=== PATIENT | female | born 2005 | race Two or more races ===

== ENCOUNTER 2024-03-16 10:57 | Emergency (ER) | payer MEDICAID, OTHER ==
[~2024-03-16] VITALS: Ht 172.7 cm; Wt 80.4 kg
--- NOTE | 2024-03-16 11:17 | ED.PDOC ---
WILDERNESS GUIDE HPI Comments 18y F who presents to the ED for chief complaint of vaginal bleeding. Pt states she has chato having vaginal bleeding since 20 minutes prior. Pt states she is currently , , and states she has been approx 4 months and states she been having dark get blood while bleeding but denies any associated blood clots. Pt states she has been having abdominal pain since last night PM. Pt rates the pain 8/10, cramping in nature, constant, with no associated exacerbating or relieving factors. Pt otherwise denies dysuria, fever, cough, chills, nausea, vomiting, chest pain or shortness of breath. Pt otherwise denies any other symptoms at this time. Chief Complaint: Time Seen by MD: 11:14 Reviewed Notes: Allergies Home Meds Active Scripts Nitrofurantoin Monohydrate Mac (Macrobid) 100 Mg Cap, 100 MG PO BID for 5 Days, #10 CAP Prov:POLLY BRAY MD 03/16/24 Information Source: Patient Mode of Arrival: Ambulatory Brought in by: self Timing: Minutes Prehospital treatment: None Severity: Moderate Vaginal Discharge: None Vaginal Lesions: None Bleeding Quality: Dark Vaginal Mass: None Onset Of Mass/Bleeding: Spontaneous Sexual Activity: Last Consensual [place]: Hours Control: None History of: Current Blood Type: Unknown Associated Signs and Symptoms: Vaginal Bleeding, Abdominal Pain Past Medical History PAST MEDICAL HISTORY: HTN Surgical History (Other): IUD removed October 2023 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 INSPECTOR History: Denies all 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 Family History Family History: Family hx of heart mai Social History Smoker: Quit Less Than 1 Year Alcohol: Denies ETOH Use Drugs: Denies Drug Use Lives In: Home Constitutional: denies: chills, diaphoresis, fatigue, fever, malaise, sweats, weakness, others EENTM: denies: blurred vision, double vision, ear bleeding, ear discharge, ear drainage, ear pain, ear ringing, eye pain, eye redness, hearing loss, mouth pain, mouth swelling, nasal discharge, nose bleeding, nose congestion, nose pain, photophobia, tearing, throat pain, throat swelling, voice changes, others Respiratory: denies: cough, hemoptysis, orthopnea, SOB at rest, shortness of breath, SOB with excertion, stridor, wheezing, others Cardiovascular: denies: chest pain, dizzy spells, diaphoresis, Dyspnea on exertion, edema, irregular heart beat, left arm pain, lightheadedness, palpitations, PND, syncope, others Gastrointestinal: reports: abdominal pain; denies: abdomen distended, blood streaked bowels, constipated, diarrhea, dysphagia, difficulty swallowing, hematemesis, melena, nausea, poor appetite, poor fluid intake, rectal bleeding, rectal pain, vomiting, others Genitourinary: reports: abnormal vagina bleeding; denies: burning, dyspareunia, dysuria, flank pain, frequency, hematuria, incontinence, pain, , vagina discharge, urgency, others Neurological: denies: dizziness, fainting, headache, left sided numbness, left sided weakness, numbness, paresthesia, pre-existing deficit, right sided numbness, right sided weakness, seizure, speech problems, tingling, tremors, weakness, others Musculoskeletal: denies: back pain, gout, joint pain, joint swelling, muscle pain, muscle stiffness, neck pain, others Integumetry: denies: bruises, change in color, change in hair/nails, dryness, laceration, lesions, lumps, rash, wounds, others Allergic/Immunocompromised: denies: Difficulty Healing, Frequent Infections, Hives, Itching, others Hematologic/Lymphatic: denies: anemia, blood clots, easy bleeding, easy bruising, swollen glands, others Endocrine: denies: excessive hunger, excessive sweating, excessive thirst, excessive urination, flushing, intolerance to cold, intolerance to heat, unexplained weight gain, unexplained weight loss, others Psychiatric: denies: anxiety, bipolar disorder, depression, hopeless, panic disorder, schizophrenia, sleepless, suicidal, others All Other Systems: Reviewed and Negative Physical Exam General Appearance: No Apparent Distress HEENT: Normal ENT Inspection, Pharynx Normal, TMs Normal Neck: Full Range of Motion, Non-Tender, Normal, Normal Inspection Respiratory: Chest Non-Tender, Lungs Clear, No Accessory Muscle Use, No Respiratory Distress, Normal Breath Sounds Cardiovascular: No Edema, No JVD, No Murmur, No Gallop, Normal Peripheral Pulses, Regular Rate/Rhythm Breast Exam: Deferred Gastrointestinal: No Organomegaly, Non Tender, No Pulsatile Mass, Normal Bowel Sounds, Soft Genitalia: Deferred Pelvic: Deferred Rectal: Deferred Extremities: No calf tenderness, Normal capillary refill, Normal inspection, Normal range of motion, Non-tender, No pedal edema Musculoskeletal : Apperance: Normal Neurologic: 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 Was a procedure done?: No Differential Diagnosis (PHOTOGRAPH INSPECTOR) Vaginal Bleeding: - Complete, - Incomplete, - Inevitable, - Missed, - Threatened, Blood Loss Anemia, Ectopic , PID, Placenta Previa, UTI, Vaginitis, Other (subchorionic hemorrhage) X-Ray, Labs, Meds, VS Vital Signs Date Time Temp Pulse Resp B/P (MAP) Pulse Ox O2 Delivery O2 Flow Rate FiO2 03/16/24 13:18 98 16 142/94 (110) 98 03/16/24 11:55 70 16 98 Room Air* 0 21 03/16/24 11:55 70 16 98/65 (76) 98 03/16/24 11:08 98.1 85 18 122/62 (82) 99 Lab Test 03/16/24 14:20 03/16/24 11:18 Range/Units Urine Color Red H Yellow Urine Clarity Ex.turbid Clear Urine pH 6.0 5.0-9.0 Urine Specific [place] 1.032 1.001-1.035 Urine Protein 2+ H Negative Urine Ketones Negative Negative Urine Blood 3+ H Negative /uL Urine Nitrite Negative Negative Urine Bilirubin Negative Negative Urine Urobilinogen Normal Negative mg/dL Urine Leukocyte Esterase 1+ Negative /uL Urine RBC 95550 0 - 4 /hpf Urine WBC 50 0 - 5 /hpf Urine Squamous Epithelial Cells Mod <5 /hpf Urine Bacteria None seen None Seen /hpf Urine Glucose Normal Normal mg/dL White Blood Count 12.0 H 4.4-10.8 10^3/uL Red Blood Count 5.43 H 4.0-5.20 10^6/uL Hemoglobin 13.9 12.2-16.2 g/dL Hematocrit 42.0 36.0-46.0 % Mean Corpuscular Volume 77.2 L 80.0-100.0 fL Mean Corpuscular Hemoglobin 25.6 L 28.0-32.0 pg Mean Corpuscular Hemoglobin Concent 33.1 32.0-36.0 g/dL Red Cell Distribution Width 14.4 H 11.8-14.3 % Platelet Count 341 140-450 10^3/uL Mean Platelet Volume 7.7 6.9-10.8 fL Neutrophils (%) (Auto) 73.4 37.0-80.0 % Lymphocytes (%) (Auto) 19.7 10.0-50.0 % Monocytes (%) (Auto) 6.5 0.0-12.0 % Eosinophils (%) (Auto) 0.2 0.0-7.0 % Basophils (%) (Auto) 0.2 0.0-2.0 % Neutrophils # (Auto) 8.8 H 1.6-8.6 10 ^3/uL Lymphocytes # (Auto) 2.4 0.4-5.4 10 ^3/uL Monocytes # (Auto) 0.8 0-1.3 10 ^3/uL Eosinophils # (Auto) 0 0-0.8 10 ^3/uL Basophils # (Auto) 0 0-0.2 10 ^3/uL Nucleated Red Blood Cells 0.1 % Beta HCG, Quantitative 572119.6 H 1.5-4.2 mIU/mL Current Medications Medications (Trade) Dose Ordered Sig/Justin Route Start Time Stop Time Status Last Admin Acetaminophen (Tylenol Tablet) 650 mg ONCE ONCE PO 03/16/24 11:15 03/16/24 11:16 DC 03/16/24 11:59 OB ULTRASOUND <14 WEEKS: IMPRESSION: IUP single live fetus 10 weeks and 1 day AUA corresponding to an VIRAJ of 10/11/2024. Small subchorionic hematoma is present measuring 2.7 cm. Close clinical and sonographic follow-up advised. No acute abnormality detected. The patient's quantitative hCG is [id number] The CBC shows slightly elevated white blood cell count of 12.0 At this time, the patient was given acetaminophen 650 mg by mouth for the pain The patient will return to the emergency department's the condition worsens. The urine test is positive for UTI The patient is being discharged on Macrobid 100 mg p.o. b.i.d. The patient will follow up with her OBGYN. Images Reviewed?: Images reviewed and evaluated by me Time of 1ST Reevaluation: 11:45 Reevaluation 1ST: Unchanged Patient Education/Counseling: Diagnosis, Treatment, Prognosis, Need For Follow Up Family Education/Counseling: No Family Present Departure 1 Departure Time of Disposition: 14:53 Impression: Primary Impression: UTI (urinary tract infection) Qualified Codes: N30.01 - Acute cystitis with hematuria Additional Impressions: Subchorionic bleed Qualified Codes: O20.8 - Other hemorrhage in early Threatened Disposition: HOME / SELF CARE / HOMELESS Condition: Fair e-Prescriptions Nitrofurantoin Monohydrate Mac (Macrobid) 100 Mg Cap 100 MG PO BID for 5 Days, #10 CAP Prov: POLLY BRAY MD 03/16/24 Discharged With: Self Critical Care Note Critical Care Time?: No Stability Stability form required: No Heart Score Heart Score: Heart Score Response (Comments) Value History N/A 0 EKG N/A 0 Age N/A 0 Risk Factors N/A 0 Troponin N/A 0 Total 0 I personally scribed for POLLY BRAY MD ([email or web address]) on 03/16/24 at 11:17. Electronically submitted by Glendy Ryan ([email or web address]). I personally scribed for POLLY BRAY MD ([email or web address]) on 03/16/24 at 12:29. Electronically submitted by Glendy Ryan ([email or web address]). POLLY BRAY MD Mar 16, 2024 11:17
[2024-03-16 11:37] LABS: Basophils # (auto) 0 10 ^3/uL (0-0.2); Eosinophils # (auto) 0 10 ^3/uL (0-0.8); Hemoglobin 13.9 g/dL (12.2-16.2); Neutrophils % (auto) 73.4 % (37.0-80.0)
[2024-03-16 11:39] LABS: Basophils % (auto) 0.2 % (0.0-2.0); Eosinophils % (auto) 0.2 % (0.0-7.0); Lymphocytes # (auto) 2.4 10 ^3/uL (0.4-5.4); Lymphocytes % (auto) 19.7 % (10.0-50.0); Mean Corpuscular Hemoglobin 25.6 pg (28.0-32.0); Mean Corpuscular Hgb Conc. 33.1 g/dL (32.0-36.0); Mean Corpuscular Volume 77.2 fL (80.0-100.0); Monocytes # (auto) 0.8 10 ^3/uL (0-1.3); Monocytes % (auto) 6.5 % (0.0-12.0); Neutrophils # (auto) 8.8 10 ^3/uL (1.6-8.6); Nucleated Red Blood Cells % 0.1 %; Platelet Count (auto) 341 10^3/uL (140-450); Red Blood Cells 5.43 10^6/uL (4.0-5.20); Red Cell Distribution Width 14.4 % (11.8-14.3)
[2024-03-16 11:55] VITALS: PULSE 70; RESP 16; O2SAT 98
[2024-03-16] MEDS: ACETAMINOPHEN 325 MG TAB PO ONE (11:59)
--- NOTE | 2024-03-16 12:15 | DVH ---
OB ULTRASOUND <14 WEEKS: HISTORY: pain TECHNIQUE: Multiple real-time grayscale sonographic images of the pelvis with duplex Doppler color f low, spectral and M-mode analysis. TRANSDUCERS: Transabdominal COMPARISON: None FINDINGS: The uterus measures 12.9 x 6.9 x 6.1 cm The cervix is not visualized Right ovary measures 3.5 x 1.7 x 2.6 cm with normal Doppler color flow. Left ovary is not visualized IUP single fetus at 10 weeks and 1 day average ultrasound age based on mean crown-rump length of 2.9 8 cm and gestational sac size of 4.68 cm heart rate detected at 158 beats per minute. Yolk sac is present. Amniotic fluid is subjectively within normal limits Shanice-gestational space: Small subchorionic hematoma is present measuring 2.7 cm. IMPRESSION: IUP single live fetus 10 weeks and 1 day AUA corresponding to an VIRAJ of 10/11/2024. Small subchorionic hematoma is present measuring 2.7 cm. Close clinical and sonographic follow-up adv ised. No acute abnormality detected.
[2024-03-16 14:31] LABS: Urine Bacteria None Seen /hpf (None Seen)
[2024-03-16 14:51] LABS: Urine Blood 3+ /uL (Negative); Urine Clarity Ex.Turbid (Clear); Urine Color Red (Yellow); Urine Protein, UAD 2+ (Negative); Urine Specific Gravity 1.032 (1.001-1.035); Urine Urobilinogen Normal (Negative); Urine WBC 50 /hpf (0 - 5)
[2024-03-16] MEDS ORDERED: NITR-87 PO (14:53)
[2024-03-16 15:03] VITALS: BP 114/64; PULSE 69; RESP 16; O2SAT 98
== END 2024-03-16 15:06 | disposition home or self-care (01) ==
LOC: ER 10:57
DX: O23.41 Unspecified infection of urinary tract in pregnancy, first trimester (principal); R10.2 Pelvic and perineal pain; N39.0 Urinary tract infection, site not specified; O10.911 Unspecified pre-existing hypertension complicating pregnancy, first trimester; Z3A.10 10 weeks gestation of pregnancy
CPT/HCPCS: 36415; 76801; 81001; 84702; 85025

== ENCOUNTER 2024-03-16 17:40 | Emergency (ER) | payer MEDICAID ==
[~2024-03-16] VITALS: Ht 172.7 cm; Wt 81.0 kg
[~2024-03-16 17:40] MED LIST: NITR-87 PO
--- NOTE | 2024-03-16 18:12 | ED.PDOC ---
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 Pt states she has chato having vaginal bleeding since 20 minutes prior. Pt states she is currently , , and states she has been approx 4 months and states she been having dark get blood while bleeding but denies any associated blood clots. Pt states she has been having abdominal pain since last night PM. Pt rates the pain 8/10, cramping in nature, constant, with no associated exacerbating or relieving factors. Pt otherwise denies dysuria, fever, cough, chills, nausea, vomiting, chest pain or shortness of breath. Pt was seen for same complaint earlier this afternoon but discharged. Pt came to the ED for further evaluation. Chief Complaint: Vaginal Bleed Time Seen by MD: 18:09 Reviewed Notes: Medications, Allergies Home Meds Active Scripts Nitrofurantoin Monohydrate Mac (Macrobid) 100 Mg Cap, 100 MG PO BID for 5 Days, #10 CAP Prov:POLLY BRAY MD 03/16/24 Information Source: Patient Mode of Arrival: Ambulatory Brought in by: self Timing: Hours Prehospital treatment: None Severity: Moderate Vaginal Discharge: None Vaginal Lesions: None Bleeding Quality: Dark Vaginal Mass: None Onset Of Mass/Bleeding: Unknown Sexual Activity: Last Consensual [place]: Unknown Control: None History of: Current Blood Type: Unknown Symptoms of Possible : None Associated Signs and Symptoms: Vaginal Bleeding Past Medical History PAST MEDICAL HISTORY: HTN Surgical History: Denies all surgeries TAKE AWAY MAN 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: Denies all TAKE AWAY MAN Hx Family History Family History: Family hx of heart mai Social History Smoker: Quit Less Than 1 Year Alcohol: Denies ETOH Use Drugs: Denies Drug Use Lives In: Home Constitutional: denies: chills, diaphoresis, fatigue, fever, malaise, sweats, weakness, others EENTM: denies: blurred vision, double vision, ear bleeding, ear discharge, ear drainage, ear pain, ear ringing, eye pain, eye redness, hearing loss, mouth pain, mouth swelling, nasal discharge, nose bleeding, nose congestion, nose pain, photophobia, tearing, throat pain, throat swelling, voice changes, others Respiratory: denies: cough, hemoptysis, orthopnea, SOB at rest, shortness of breath, SOB with excertion, stridor, wheezing, others Cardiovascular: denies: chest pain, dizzy spells, diaphoresis, Dyspnea on exertion, edema, irregular heart beat, left arm pain, lightheadedness, palpitations, PND, syncope, others Gastrointestinal: reports: abdominal pain; denies: abdomen distended, blood streaked bowels, constipated, diarrhea, dysphagia, difficulty swallowing, hematemesis, melena, nausea, poor appetite, poor fluid intake, rectal bleeding, rectal pain, vomiting, others Genitourinary: reports: abnormal vagina bleeding; denies: burning, dyspareunia, dysuria, flank pain, frequency, hematuria, incontinence, pain, , vagina discharge, urgency, others Neurological: denies: dizziness, fainting, headache, left sided numbness, left sided weakness, numbness, paresthesia, pre-existing deficit, right sided numbness, right sided weakness, seizure, speech problems, tingling, tremors, weakness, others Musculoskeletal: denies: back pain, gout, joint pain, joint swelling, muscle pain, muscle stiffness, neck pain, others Integumetry: denies: bruises, change in color, change in hair/nails, dryness, laceration, lesions, lumps, rash, wounds, others Allergic/Immunocompromised: denies: Difficulty Healing, Frequent Infections, Hives, Itching, others Hematologic/Lymphatic: denies: anemia, blood clots, easy bleeding, easy bruising, swollen glands, others Endocrine: denies: excessive hunger, excessive sweating, excessive thirst, excessive urination, flushing, intolerance to cold, intolerance to heat, unexplained weight gain, unexplained weight loss, others Psychiatric: denies: anxiety, bipolar disorder, depression, hopeless, panic disorder, schizophrenia, sleepless, suicidal, others All Other Systems: Reviewed and Negative Physical Exam General Appearance: Mild Distress HEENT: Normal ENT Inspection, Pharynx Normal, TMs Normal Neck: Full Range of Motion, Non-Tender, Normal, Normal Inspection Respiratory: Chest Non-Tender, Lungs Clear, No Accessory Muscle Use, No Respiratory Distress, Normal Breath Sounds Cardiovascular: No Edema, No JVD, No Murmur, No Gallop, Normal Peripheral Pulses, Regular Rate/Rhythm Breast Exam: Deferred Gastrointestinal: No Organomegaly, Non Tender, No Pulsatile Mass, Normal Bowel Sounds, Soft Genitalia: Deferred Pelvic: Deferred Rectal: Deferred Extremities: No calf tenderness, Normal capillary refill, Normal inspection, Normal range of motion, Non-tender, No pedal edema Musculoskeletal : Apperance: Normal Neurologic: 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 Was a procedure done?: No Differential Diagnosis (TAKE AWAY MAN) Vaginal Bleeding: - Missed, - Threatened, Abruptio Placentae, Blood Loss Anemia, Menorrhagia, Menometrorrhagia, UTI, Vaginitis, Other (subchorionic hemorrhage) X-Ray, Labs, Meds, VS Vital Signs Date Time Temp Pulse Resp B/P (MAP) Pulse Ox O2 Delivery O2 Flow Rate FiO2 03/16/24 18:51 84 16 115/56 (75) 99 03/16/24 18:46 84 16 99 Room Air* 0 21 03/16/24 18:09 98.1 98 18 124/70 (88) 97 Lab Test 03/16/24 18:07 Range/Units White Blood Count 13.9 H 4.4-10.8 10^3/uL Red Blood Count 5.31 H 4.0-5.20 10^6/uL Hemoglobin 13.7 12.2-16.2 g/dL Hematocrit 40.9 36.0-46.0 % Mean Corpuscular Volume 77.0 L 80.0-100.0 fL Mean Corpuscular Hemoglobin 25.8 L 28.0-32.0 pg Mean Corpuscular Hemoglobin Concent 33.5 32.0-36.0 g/dL Red Cell Distribution Width 14.0 11.8-14.3 % Platelet Count 335 140-450 10^3/uL Mean Platelet Volume 7.8 6.9-10.8 fL Neutrophils (%) (Auto) 69.7 37.0-80.0 % Lymphocytes (%) (Auto) 21.5 10.0-50.0 % Monocytes (%) (Auto) 7.9 0.0-12.0 % Eosinophils (%) (Auto) 0.6 0.0-7.0 % Basophils (%) (Auto) 0.3 0.0-2.0 % Neutrophils # (Auto) 9.7 H 1.6-8.6 10 ^3/uL Lymphocytes # (Auto) 3.0 0.4-5.4 10 ^3/uL Monocytes # (Auto) 1.1 0-1.3 10 ^3/uL Eosinophils # (Auto) 0.1 0-0.8 10 ^3/uL Basophils # (Auto) 0 0-0.2 10 ^3/uL Nucleated Red Blood Cells 0.0 % Prothrombin Time 10.4 9.3-11.8 sec Prothrombin Time INR 0.98 0.9-1.15 Activated Partial Thromboplast Time 26.5 24.5-34.5 SEC Sodium Level 138 136-145 mmol/L Potassium Level 3.6 3.5-5.1 mmol/L Chloride Level 105 98-107 mmol/L Carbon Dioxide Level 24 20-31 mmol/L Anion Gap 9 5-15 Blood Urea Nitrogen 12 9-23 mg/dL Creatinine 0.66 0.550-1.02 mg/dL Glomerular Filtration Rate Calc 129 >90 mL/min BUN/Creatinine Ratio 18.2 10.0-20.0 Serum Glucose 103 74-106 mg/dL Calcium Level 9.7 8.7-10.4 mg/dL Beta HCG, Quantitative 788676.4 H 1.5-4.2 mIU/mL OB ULTRASOUND <14 WEEKS: IMPRESSION: 1. IUP single live fetus 10 weeks 1 AUA corresponding to an VIRAJ of 10/11/2024 2. FHR: 159 beats per minute 3. 1.3 x 1.2 x 0.6 cm subchorionic hemorrhage.. At this time, the patient had a CBC which shows an elevated white blood cell count of 13.9 The rest of the CBC is within normal limits The quantitative hCG is [id number] At this time, the patient will be discharged We spoke with Dr. Cabrera and the patient will follow up with the OBGYN We have explained to the patient that there is a very good chance that she may miscarriage. Images Reviewed?: Images reviewed and evaluated by me Time of 1ST Reevaluation: 18:40 Reevaluation 1ST: Unchanged Time of 2ND Reevaluation: 19:12 Reevaluation 2ND: Improved Patient Education/Counseling: Diagnosis, Treatment, Prognosis, Need For Follow Up Family Education/Counseling: Diagnosis, Treatment, Prognosis, Need For Follow Up Departure 1 Departure Time of Disposition: 19:12 Impression: Primary Impression: Subchorionic bleed Qualified Codes: O46.8X9 - Other antepartum hemorrhage, unspecified trimester Additional Impression: Threatened Disposition: HOME / SELF CARE / HOMELESS Condition: Fair Discharged With: Self Critical Care Note Critical Care Time?: No Stability Stability form required: No Heart Score Heart Score: Heart Score Response (Comments) Value History N/A 0 EKG N/A 0 Age N/A 0 Risk Factors N/A 0 Troponin N/A 0 Total 0 I personally scribed for POLLY BRAY MD ([email or web address]) on 03/16/24 at 18:12. Electronically submitted by Glendy Ryan ([email or web address]). I personally scribed for POLLY BRAY MD ([email or web address]) on 03/16/24 at 19:08. Electronically submitted by Glendy Ryan ([email or web address]). POLLY BRAY MD Mar 16, 2024 18:12
[2024-03-16 18:26] LABS: Basophils # (auto) 0 10 ^3/uL (0-0.2); Basophils % (auto) 0.3 % (0.0-2.0); Eosinophils # (auto) 0.1 10 ^3/uL (0-0.8); Eosinophils % (auto) 0.6 % (0.0-7.0); Monocytes # (auto) 1.1 10 ^3/uL (0-1.3); Neutrophils # (auto) 9.7 10 ^3/uL (1.6-8.6)
[2024-03-16 18:28] LABS: Hematocrit 40.9 % (36.0-46.0); Hemoglobin 13.7 g/dL (12.2-16.2); Lymphocytes % (auto) 21.5 % (10.0-50.0); Mean Corpuscular Hemoglobin 25.8 pg (28.0-32.0); Mean Corpuscular Hgb Conc. 33.5 g/dL (32.0-36.0); Monocytes % (auto) 7.9 % (0.0-12.0); Neutrophils % (auto) 69.7 % (37.0-80.0); Platelet Count (auto) 335 10^3/uL (140-450); Red Blood Cells 5.31 10^6/uL (4.0-5.20); White Blood Cell 13.9 10^3/uL (4.4-10.8)
[2024-03-16 18:35] LABS: Chloride 105 mmol/L (98-107); Potassium 3.6 mmol/L (3.5-5.1); Sodium 138 mmol/L (136-145)
[2024-03-16 18:36] LABS: Anion Gap 9 (5-15); Calcium 9.7 mg/dL (8.7-10.4); Carbon Dioxide 24 mmol/L (20-31)
[2024-03-16 18:41] LABS: BUN/Creatinine Ratio 18.2 (10.0-20.0); Blood Urea Nitrogen 12 mg/dL (9-23); Glucose 103 mg/dL (74-106)
[2024-03-16 18:45] LABS: INR 0.98 (0.9-1.15); Partial Thromboplastin Time 26.5 SEC (24.5-34.5); Prothrombin Time 10.4 sec (9.3-11.8)
[2024-03-16 18:46] VITALS: PULSE 84; RESP 16; O2SAT 99
[2024-03-16 18:51] VITALS: BP 115/56; PULSE 84; RESP 16; O2SAT 99
--- NOTE | 2024-03-16 18:57 | DVH ---
OB ULTRASOUND <14 WEEKS: HISTORY: pain TECHNIQUE: Multiple real-time grayscale sonographic images of the pelvis with duplex Doppler color f low, spectral and M-mode analysis. TRANSDUCERS: Transabdominal FINDINGS: The uterus measures 11.5 x 7.5 x 7.9 cm The cervix not measured Right ovary measures 2.4 x 1.8 x 1.9 cm. Right ovarian volume is 4.4 cc. with normal Doppler color fl ow Left ovary not visualized IUP single live fetus at 10 weeks 1 day average ultrasound age based on mean crown-rump length of 2.9 2 cm and gestational sac size of 4.79 cm heart rate detected at 159 beats per minute. Yolk sac visualized. Amniotic fluid adequate Shanice-gestational space: 1.3 x 1.2 x 0.6 cm subchorionic hemorrhage. IMPRESSION: 1. IUP single live fetus 10 weeks 1 AUA corresponding to an VIRAJ of 10/11/2024 2. FHR: 159 beats per minute 3. 1.3 x 1.2 x 0.6 cm subchorionic hemorrhage..
== END 2024-03-16 20:30 | disposition home or self-care (01) ==
LOC: ER 17:40
DX: O20.0 Threatened abortion (principal); O20.8 Other hemorrhage in early pregnancy; I10 Essential (primary) hypertension; Z3A.10 10 weeks gestation of pregnancy
CPT/HCPCS: 36415; 76801; 80048; 84702; 85025; 85610; 85730; 86850; 86900; 86901

== ENCOUNTER 2024-03-17 23:18 | Emergency (ER) | payer MEDICAID ==
[~2024-03-17] VITALS: Ht 172.7 cm; Wt 81.8 kg
[2024-03-17] MEDS: SODIUM CHLORIDE 0.9% 1,000 ML IV ONE (23:45)
[2024-03-17 23:58] LABS: Basophils # (auto) 0.1 10 ^3/uL (0-0.2); Basophils % (auto) 0.3 % (0.0-2.0); Eosinophils # (auto) 0.1 10 ^3/uL (0-0.8); Eosinophils % (auto) 0.6 % (0.0-7.0); Hematocrit 39.1 % (36.0-46.0); Hemoglobin 13.2 g/dL (12.2-16.2); Lymphocytes # (auto) 3.5 10 ^3/uL (0.4-5.4); Lymphocytes % (auto) 23.2 % (10.0-50.0); Mean Corpuscular Hemoglobin 26.1 pg (28.0-32.0); Mean Corpuscular Hgb Conc. 33.7 g/dL (32.0-36.0); Mean Corpuscular Volume 77.4 fL (80.0-100.0); Monocytes # (auto) 1.1 10 ^3/uL (0-1.3); Monocytes % (auto) 7.1 % (0.0-12.0); Neutrophils # (auto) 10.3 10 ^3/uL (1.6-8.6); Neutrophils % (auto) 68.8 % (37.0-80.0); Platelet Count (auto) 327 10^3/uL (140-450); Red Blood Cells 5.05 10^6/uL (4.0-5.20)
--- NOTE | 2024-03-18 00:09 | ED.PDOC ---
History of Present Illness HPI Comments 18 y/o F, with a Hx of UTI, presents with c/o non-radiating, substernal chest pain at 2240, today. Patient reports being 10x week with her second ([id number]) and having unprovoked and sudden onset of constant "poking needles" sensation to her chest, this evening. Patient comments on no Hx of chest pain or cardiac issues in the past. Patient admits to current Macrobid use for a UTI infection she was Dx with, recently, along with subchorionic hemorrhage following [facility] ED visit, yesterday, for abnormal vaginal bleeding w/associated abdominal pain, nausea, and vomiting. Patient still endorses on having aforementioned GI symptoms. Patient comments on no recent injuries, sick contact, travel, spoiled food intake, sexual activity, or substance use/exposure. Patient denies having any shortness of breath, dizziness, hematemesis, fever, chills, or other associated symptoms or modifiers at this time. Chief Complaint: Chest Pain Time Seen by MD: 23:40 Reviewed Notes: Nurses Notes, Medications, Allergies Allergies: Coded Allergies: NO KNOWN ALLERGIES (Unverified , 03/17/24) Home Meds Active Scripts Nitrofurantoin Monohydrate Mac (Macrobid) 100 Mg Cap, 100 MG PO BID for 5 Days, #10 CAP Prov:POLLY BRAY MD 03/16/24 Information Source: Patient Mode of Arrival: Ambulatory Severity: Moderate Timing: Minutes Duration: Since onset Prehospital treatment: None Past Medical History PAST MEDICAL HISTORY: Denies Surgical History: Denies all surgeries RECEPTIONIST NURSE History: Denies all RECEPTIONIST NURSE Hx 2 Para 1 AB 0 Family History Family History: Family hx of heart mai Social History Smoker: Quit Less Than 1 Year Alcohol: Denies ETOH Use Drugs: Denies Drug Use Lives In: Home Constitutional: denies: chills, diaphoresis, fatigue, fever, malaise, sweats, weakness, others EENTM: denies: blurred vision, double vision, ear bleeding, ear discharge, ear drainage, ear pain, ear ringing, eye pain, eye redness, hearing loss, mouth pain, mouth swelling, nasal discharge, nose bleeding, nose congestion, nose pain, photophobia, tearing, throat pain, throat swelling, voice changes, others Respiratory: denies: cough, hemoptysis, orthopnea, SOB at rest, shortness of breath, SOB with excertion, stridor, wheezing, others Cardiovascular: reports: chest pain Gastrointestinal: reports: abdominal pain, nausea, vomiting; denies: abdomen distended, blood streaked bowels, constipated, diarrhea, dysphagia, difficulty swallowing, hematemesis, melena, poor appetite, poor fluid intake, rectal bleeding, rectal pain, others Genitourinary: reports: abnormal vagina bleeding; denies: burning, dyspareunia, dysuria, flank pain, frequency, hematuria, incontinence, pain, , vagina discharge, urgency, others Neurological: denies: dizziness, fainting, headache, left sided numbness, left sided weakness, numbness, paresthesia, pre-existing deficit, right sided numbness, right sided weakness, seizure, speech problems, tingling, tremors, weakness, others Musculoskeletal: denies: back pain, gout, joint pain, joint swelling, muscle pain, muscle stiffness, neck pain, others Integumetry: denies: bruises, change in color, change in hair/nails, dryness, laceration, lesions, lumps, rash, wounds, others Allergic/Immunocompromised: denies: Difficulty Healing, Frequent Infections, Hives, Itching, others Hematologic/Lymphatic: denies: anemia, blood clots, easy bleeding, easy bruising, swollen glands, others Endocrine: denies: excessive hunger, excessive sweating, excessive thirst, excessive urination, flushing, intolerance to cold, intolerance to heat, unexplained weight gain, unexplained weight loss, others Psychiatric: denies: anxiety, bipolar disorder, depression, hopeless, panic disorder, schizophrenia, sleepless, suicidal, others All Other Systems: Reviewed and Negative Physical Exam General Appearance: No Apparent Distress, Normal, Other (anxious appearing ) HEENT: Normal ENT Inspection, Pharynx Normal, TMs Normal Neck: Full Range of Motion, Non-Tender, Normal, Normal Inspection Respiratory: Chest Non-Tender, Lungs Clear, No Accessory Muscle Use, No Respiratory Distress, Normal Breath Sounds Cardiovascular: No Edema, No JVD, No Murmur, No Gallop, Normal Peripheral Pulses, Regular Rate/Rhythm Breast Exam: Deferred Gastrointestinal: No Organomegaly, Non Tender, No Pulsatile Mass, Normal Bowel Sounds, Soft Genitalia: Deferred Pelvic: Deferred Rectal: Deferred Extremities: No calf tenderness, Normal capillary refill, Normal inspection, Normal range of motion, Non-tender, No pedal edema Musculoskeletal : Apperance: Normal Neurologic: Alert, wire welder II-XII nml as Tested, No Motor Deficits, Normal Affect, Normal Mood, No Sensory Deficits Cerebellar Function: Normal Reflexes: Normal Skin: Dry, Normal Color, Warm Lymphatic: No Adenopathy Was a procedure done? Was a procedure done?: No EKG EKG : Pulse Rate (adult): 64 [place]: Normal Cardiac Rhythm: NSR Block: None Hypertrophy: None ST: Normal Differential Dx Considerations may include: anxiety, panic attack, SC, ACS, PE, angina, costochondritis, musculoskeletal pain, gastritis, gastroenteritis X-Ray, Labs, Meds, VS Vital Signs Date Time Temp Pulse Resp B/P (MAP) Pulse Ox O2 Delivery O2 Flow Rate FiO2 03/18/24 00:23 96 03/18/24 00:19 66 24 100 Room Air 03/18/24 00:19 97.4 66 24 113/71 (85) 100 97.4 03/18/24 00:09 64 03/17/24 23:26 64 03/17/24 23:20 97.4 66 24 113/71 (85) 100 Lab Test 03/18/24 00:26 03/17/24 23:46 Range/Units Troponin I High Sensitivity < 3 L < 3 L </=34 ng/L White Blood Count 15.0 H 4.4-10.8 10^3/uL Red Blood Count 5.05 4.0-5.20 10^6/uL Hemoglobin 13.2 12.2-16.2 g/dL Hematocrit 39.1 36.0-46.0 % Mean Corpuscular Volume 77.4 L 80.0-100.0 fL Mean Corpuscular Hemoglobin 26.1 L 28.0-32.0 pg Mean Corpuscular Hemoglobin Concent 33.7 32.0-36.0 g/dL Red Cell Distribution Width 14.0 11.8-14.3 % Platelet Count 327 140-450 10^3/uL Mean Platelet Volume 7.5 6.9-10.8 fL Neutrophils (%) (Auto) 68.8 37.0-80.0 % Lymphocytes (%) (Auto) 23.2 10.0-50.0 % Monocytes (%) (Auto) 7.1 0.0-12.0 % Eosinophils (%) (Auto) 0.6 0.0-7.0 % Basophils (%) (Auto) 0.3 0.0-2.0 % Neutrophils # (Auto) 10.3 H 1.6-8.6 10 ^3/uL Lymphocytes # (Auto) 3.5 0.4-5.4 10 ^3/uL Monocytes # (Auto) 1.1 0-1.3 10 ^3/uL Eosinophils # (Auto) 0.1 0-0.8 10 ^3/uL Basophils # (Auto) 0.1 0-0.2 10 ^3/uL Nucleated Red Blood Cells 0.0 % Sodium Level 136 136-145 mmol/L Potassium Level 3.6 3.5-5.1 mmol/L Chloride Level 106 98-107 mmol/L Carbon Dioxide Level 24 20-31 mmol/L Anion Gap 6 5-15 Blood Urea Nitrogen 7 L 9-23 mg/dL Creatinine 0.62 0.550-1.02 mg/dL Glomerular Filtration Rate Calc 131 >90 mL/min BUN/Creatinine Ratio 11.3 10.0-20.0 Serum Glucose 81 74-106 mg/dL Calcium Level 9.3 8.7-10.4 mg/dL Current Medications Medications (Trade) Dose Ordered Sig/Justin Route Start Time Stop Time Status Last Admin Sodium Chloride 1,000 ml @ 1,000 mls/hr Q1H ONCE IV 03/17/24 23:45 03/18/24 00:44 DC 03/17/24 23:45 Time of 1ST Reevaluation: 00:10 Reevaluation 1ST: Unchanged Patient Education/Counseling: Diagnosis, Treatment Family Education/Counseling: No Family Present Departure 1 Departure Time of Disposition: 01:09 (Patient's workup is benign. Patient with normal re assuring exam. We will discharge patient home with outpatient follow up) Impression: Primary Impression: Chest pain Qualified Codes: R07.9 - Chest pain, unspecified Disposition: HOME / SELF CARE / HOMELESS Condition: Stable Additional Instructions: Your workup today was benign. You can take Tylenol as needed for pain. Your ultrasound is unchanged from yesterday. You should follow up with your regular doctor within 1 week. You should stay well rested and well hydrated. If your symptoms worsen or you have any other concerns please return to the emergency room. e-Prescriptions Ondansetron Odt 4MG Tab (ZOFRAN PO) 4 Mg Tb 4 MG PO TID PRN for 4 Days, #12 TAB ODT TAB-DISSOLVE IN MOUTH, THEN SWALLOW Prov: MILO HANSEN MD 03/18/24 Discharged With: Self Critical Care Note Critical Care Time?: No Stability Stability form required: No Heart Score Heart Score: Heart Score Response (Comments) Value History Slightly Suspicious 0 EKG Normal 0 Age <45 0 Risk Factors No known risk factors 0 Troponin Normal limit 0 Total 0 I personally scribed for MILO HANSEN MD ([email or web address]) on 03/18/24 at 00:09. Electronically submitted by Alberto Sears [email or web address]). MILO HANSEN MD Mar 18, 2024 00:09
[2024-03-18 00:11] LABS: Chloride 106 mmol/L (98-107); Potassium 3.6 mmol/L (3.5-5.1); Sodium 136 mmol/L (136-145)
[2024-03-18 00:12] LABS: Anion Gap 6 (5-15); Carbon Dioxide 24 mmol/L (20-31)
[2024-03-18 00:13] LABS: Calcium 9.3 mg/dL (8.7-10.4)
[2024-03-18 00:17] LABS: Glucose 81 mg/dL (74-106)
[2024-03-18 00:18] LABS: BUN/Creatinine Ratio 11.3 (10.0-20.0); Blood Urea Nitrogen 7 mg/dL (9-23)
[2024-03-18 00:19] VITALS: BP 113/71; RESP 24; TEMP 97.4; O2SAT 100
[2024-03-18 00:23] VITALS: PULSE 96
--- NOTE | 2024-03-18 00:43 | DVH ---
OB ULTRASOUND <14 WEEKS: HISTORY: abdominal pain TECHNIQUE: Multiple real-time grayscale sonographic images of the pelvis with duplex Doppler color f low, spectral and M-mode analysis. TRANSDUCERS: Transabdominal FINDINGS: The uterus measures 11.6 x 8.0 x 8.9 cm The cervix is not visualized on this study. Right ovary measures 3.1 x 2.6 x 1.4 cm with normal Doppler color flow. There is a 1.2 cm follicular cyst. Left ovary measures 2.2 x 2.7 x 1.3 cm with normal Doppler color flow IUP single live fetus at 10 weeks 3 days average ultrasound age based on mean crown-rump length of 3. 2 cm and gestational sac size of 4.9 cm heart rate detected at 154 beats per minute. There is a 1.1 x 1.0 x 0.7 cm hypoechoic area adjacent to the gestational sac suggestive of possible subchorionic hemorrhage. Yolk sac is visualized. IMPRESSION: IUP single live fetus 10 weeks 3 days AUA corresponding to an VIRAJ of October 10, 2024. Possible small subchorionic hemorrhage. Attention on follow-up.
[2024-03-18] MEDS ORDERED: ZOFR4T PO (01:12)
[2024-03-18] MEDS: FAMOTIDINE 20 MG TAB PO ONE (01:38)
--- NOTE | 2024-03-18 05:51 | ECG ---
[facility] Test Date: 2024-03-18 Test Time: 00:23:09 Pat Name: BRIAN HINESDepartment: ED Room: Gender: F Internist Medical Doctor Md: SALUD : 2005 Requested By: MILO HANSEN Order Number: [id number] Reading MD: Hiren Nunez Measurements Intervals [place] Rate: 96 P: 82 TN: 126 QRS: 83 QRSD: 84 T: 38 QT: 372 QTc: 471 Interpretive Statements Sinus rhythm Probable left atrial enlargement Nonspecific T abnormalities, lateral leads Electronically Signed On 03-20-2024 11:52:21 PST by Hiren Nunez Please click the below link to view image of tracing.
--- NOTE | 2024-03-18 13:27 | ECG ---
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
== END 2024-03-18 01:50 | disposition home or self-care (01) ==
LOC: ER 23:18
DX: O99.411 Diseases of the circulatory system complicating pregnancy, first trimester (principal); R07.89 Other chest pain; Z3A.10 10 weeks gestation of pregnancy
CPT/HCPCS: 36415; 76801; 80048; 84484; 85025; 93005; 96360; 96361; 99284; J7030; 96365

== ENCOUNTER 2024-03-21 11:15 | Emergency (ER) | payer MEDICAID ==
[~2024-03-21] VITALS: Ht 172.7 cm; Wt 82.0 kg
[~2024-03-21 11:15] MED LIST changes: +ZOFR4T PO
--- NOTE | 2024-03-21 11:34 | ED.PDOC ---
HOME HEALTH NURSE LICENSED PRACTICAL HPI Comments 18 galvan.o female presents to the ED for chief complaint of vaginal bleeding that started 5 days ago. Patient reports she is 10 weeks gestation, ,states bleeding worsened this morning, moderate to heavy now. Patient states she has been having abdominal cramping rating an 8/10 on the pain scale, constant, with no associated exacerbating or relieving factors. Patient otherwise denies dysuria, fever, cough, chills, nausea, vomiting, chest pain or shortness of breath. Patient was seen at this ED on three separate occasions and has had 3 ultrasounds that read: IUP single live fetus 10 weeks 3 days AUA corresponding to an VIRAJ of October 10, 2024. Possible small subchorionic hemorrhage. Attention on follow-up. Patient has no HOME HEALTH NURSE LICENSED PRACTICAL at this time and has not been able to get one. Time Seen by MD: 11:25 Reviewed Notes: Nurses Notes, Medications, Allergies Allergies: Coded Allergies: NO KNOWN ALLERGIES (Unverified , 03/17/24) Home Meds Active Scripts Ondansetron Odt 4MG Tab (ZOFRAN PO) 4 Mg Tb, 4 MG PO TID PRN for 4 Days, #12 TAB ODT TAB-DISSOLVE IN MOUTH, THEN SWALLOW Prov:MILO HANSEN MD 03/18/24 Nitrofurantoin Monohydrate Mac (Macrobid) 100 Mg Cap, 100 MG PO BID for 5 Days, #10 CAP Prov:POLLY BRAY MD 03/16/24 Information Source: Patient Mode of Arrival: Ambulatory Timing: Days (5) Severity: Moderate Onset Of Mass/Bleeding: Spontaneous Sexual Activity: Last Consensual [place]: Unknown Control: None History of: Current Associated Signs and Symptoms: Vaginal Bleeding, Cramping Past Medical History PAST MEDICAL HISTORY: UTI'S Surgical History: Denies all surgeries 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 History: Denies all 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 Hx Family History Family History: Family hx of heart mai Social History Smoker: Quit Less Than 1 Year Alcohol: Denies ETOH Use Drugs: Denies Drug Use Lives In: Home Constitutional: denies: chills, diaphoresis, fatigue, fever, malaise, sweats, weakness, others EENTM: denies: blurred vision, double vision, ear bleeding, ear discharge, ear drainage, ear pain, ear ringing, eye pain, eye redness, hearing loss, mouth pain, mouth swelling, nasal discharge, nose bleeding, nose congestion, nose pain, photophobia, tearing, throat pain, throat swelling, voice changes, others Respiratory: denies: cough, hemoptysis, orthopnea, SOB at rest, shortness of breath, SOB with excertion, stridor, wheezing, others Cardiovascular: denies: chest pain, dizzy spells, diaphoresis, Dyspnea on exertion, edema, irregular heart beat, left arm pain, lightheadedness, palpitations, PND, syncope, others Gastrointestinal: reports: abdominal pain; denies: abdomen distended, blood streaked bowels, constipated, diarrhea, dysphagia, difficulty swallowing, hematemesis, melena, nausea, poor appetite, poor fluid intake, rectal bleeding, rectal pain, vomiting, others Genitourinary: reports: abnormal vagina bleeding, pain, ; denies: burning, dyspareunia, dysuria, flank pain, frequency, hematuria, incontinence, vagina discharge, urgency, others Neurological: denies: dizziness, fainting, headache, left sided numbness, left sided weakness, numbness, paresthesia, pre-existing deficit, right sided numbness, right sided weakness, seizure, speech problems, tingling, tremors, weakness, others Musculoskeletal: denies: back pain, gout, joint pain, joint swelling, muscle pain, muscle stiffness, neck pain, others Integumetry: denies: bruises, change in color, change in hair/nails, dryness, laceration, lesions, lumps, rash, wounds, others Allergic/Immunocompromised: denies: Difficulty Healing, Frequent Infections, Hives, Itching, others Hematologic/Lymphatic: denies: anemia, blood clots, easy bleeding, easy bruising, swollen glands, others Endocrine: denies: excessive hunger, excessive sweating, excessive thirst, excessive urination, flushing, intolerance to cold, intolerance to heat, unexplained weight gain, unexplained weight loss, others Psychiatric: denies: anxiety, bipolar disorder, depression, hopeless, panic disorder, schizophrenia, sleepless, suicidal, others All Other Systems: Reviewed and Negative Physical Exam General Appearance: No Apparent Distress HEENT: Normal ENT Inspection, Pharynx Normal, TMs Normal Neck: Full Range of Motion, Non-Tender, Normal, Normal Inspection Respiratory: Chest Non-Tender, Lungs Clear, No Accessory Muscle Use, No Respiratory Distress, Normal Breath Sounds Cardiovascular: No Edema, No JVD, No Murmur, No Gallop, Normal Peripheral Pulses, Regular Rate/Rhythm Breast Exam: Deferred Gastrointestinal: No Organomegaly, Non Tender, No Pulsatile Mass, Normal Bowel Sounds, Soft Genitalia: Deferred Pelvic: Deferred Rectal: Deferred Extremities: No calf tenderness, Normal capillary refill, Normal inspection, Normal range of motion, Non-tender, No pedal edema Musculoskeletal : Apperance: Normal Neurologic: Alert, acoustic engineer II-XII nml as Tested, No Motor Deficits, Normal Affect, Normal Mood, No Sensory Deficits Cerebellar Function: Normal Reflexes: Normal Skin: Dry, Normal Color, Warm Lymphatic: No Adenopathy Was a procedure done? Was a procedure done?: No Differential Diagnosis (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) Vaginal Bleeding: - Incomplete, - Inevitable, - Missed, - Threatened, Ectopic , UTI X-Ray, Labs, Meds, VS Vital Signs Date Time Temp Pulse Resp B/P (MAP) Pulse Ox O2 Delivery O2 Flow Rate FiO2 03/21/24 13:58 74 18 119/68 (85) 100 03/21/24 11:36 98.0 77 20 159/58 (91) 98 Lab Test 03/21/24 11:44 Range/Units Beta HCG, Quantitative 85282.0 H 1.5-4.2 mIU/mL The quantitative [place] [id number] We are contacting our OB at this time. Time of 1ST Reevaluation: 11:29 Reevaluation 1ST: Unchanged Patient Education/Counseling: Diagnosis, Treatment, Prognosis, Need For Follow Up Family Education/Counseling: No Family Present Departure 1 Departure Time of Disposition: 13:19 Impression: Primary Impression: Threatened Disposition: 01 HOME / SELF CARE / HOMELESS Condition: Fair Discharged With: Self Critical Care Note Critical Care Time?: No Stability Stability form required: No I personally scribed for POLLY BRAY MD ([email or web address]) on 03/21/24 at 11:34. Electronically submitted by Belen Barry ([facility]). POLLY BRAY MD Mar 21, 2024 11:34
[2024-03-21 13:58] VITALS: BP 119/68; PULSE 74; RESP 18; O2SAT 100
--- NOTE | 2024-03-21 14:23 | DVH ---
OB ULTRASOUND <14 WEEKS: HISTORY: bleeding Comparison studies: Date of service: 03/17/2024; date of service 03/16/2024. TECHNIQUE: Multiple real-time grayscale sonographic images of the pelvis with duplex Doppler color f low, spectral and M-mode analysis. TRANSDUCERS: Transabdominal FINDINGS: The uterus measures 8.69 x 5.68 by 9.01 cm. Uterine volume is 232.92 mL. There is a gestational sac m easuring 5.26 cm consistent with 11 weeks 1 day. [place]-rump length is 4.04 cm consistent with 11 week s 0 days. Yolk sac is visualized. heart rate is 150 beats per minute. VIRAJ 10/09/2024. Average f acial age 11 weeks 1 day. The cervix not measured Right ovary not visualized. Left ovary not visualized. IUP single live fetus at 11 weeks 1 day average ultrasound age based on mean crown-rump length of 4.0 4 cm cm and gestational sac size of 5.26 cm cm heart rate detected at 150 beats per minute. Yolk sac visualized. Amniotic fluid adequate [place]-gestational space: 2.6 x 1.3 x 2.1 cm anechoic area adjacent to the gestational sac consistent w ith a subchorionic hemorrhage. IMPRESSION: 1. IUP single live fetus 11 weeks 1 AUA corresponding to an VIRAJ of 10/09/2024. 2. 2. FHR: 150 bpm. 3. 2.6 x 1.3 x 2.1 cm subchorionic hemorrhage. HS:Y
== END 2024-03-21 14:43 | disposition home or self-care (01) ==
LOC: ER 11:15
DX: O20.0 Threatened abortion (principal); R10.2 Pelvic and perineal pain; Z3A.11 11 weeks gestation of pregnancy; Z87.440 Personal history of urinary (tract) infections; Z87.891 Personal history of nicotine dependence
CPT/HCPCS: 36415; 76801; 84702

== ENCOUNTER 2024-03-29 14:00 | Emergency (ER) | payer MEDICAID ==
[~2024-03-29] VITALS: Ht 170.2 cm; Wt 81.0 kg
--- NOTE | 2024-03-29 14:20 | ED.PDOC ---
CNA CAREGIVER HPI Comments 18Y F presents to ED for chief complaint abnormal vaginal bleeding >1wk. Pt states she is currently 12 weeks and vaginal bleeding has worsened. Pt describes blood as dark and containing "tissue". . Additional symptom includes abd cramping. Pt denies dysuria, fever, cough, chills, n/v, chest pain, and SOB. Pt has been seen at [facility] 3 other times for same chief complaint and has had 3 ultrasounds with latest done on 03/21/2024 reading as: IMPRESSION: 1. IUP single live fetus 11 weeks 1 AUA corresponding to an VIRAJ of 10/09/2024. 2. FHR: 150 bpm. 3. 2.6 x 1.3 x 2.1 cm subchorionic hemorrhage. Pt has appt with CNA CAREGIVER on , 04/03/2024. No known allergies. Time Seen by MD: 14:04 Reviewed Notes: Medications, Allergies Allergies: Coded Allergies: NO KNOWN ALLERGIES (Unverified , 03/17/24) Home Meds Active Scripts Ondansetron Odt 4MG Tab (ZOFRAN PO) 4 Mg Tb, 4 MG PO TID PRN for 4 Days, #12 TAB ODT TAB-DISSOLVE IN MOUTH, THEN SWALLOW Prov:MILO HANSEN MD 03/18/24 Nitrofurantoin Monohydrate Mac (Macrobid) 100 Mg Cap, 100 MG PO BID for 5 Days, #10 CAP Prov:POLLY BRAY MD 03/16/24 Information Source: Patient Mode of Arrival: Ambulatory Timing: Days Severity: Moderate Vaginal Discharge: None Vaginal Lesions: None Bleeding Quality: Dark, Clotted Vaginal Mass: None Onset Of Mass/Bleeding: Unknown Sexual Activity: Last Consensual [place]: Unknown Control: None History of: Current Blood Type: Unknown Associated Signs and Symptoms: Vaginal Bleeding, Abdominal Pain, Cramping Past Medical History PAST MEDICAL HISTORY: UTI'S Surgical History: Denies all surgeries 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 Hx Family History Family History: Unknown, Family hx of heart mai Social History Smoker: Quit Less Than 1 Year Alcohol: Denies ETOH Use Drugs: Denies Drug Use Lives In: Home Constitutional: denies: chills, diaphoresis, fatigue, fever, malaise, sweats, weakness, others EENTM: denies: blurred vision, double vision, ear bleeding, ear discharge, ear drainage, ear pain, ear ringing, eye pain, eye redness, hearing loss, mouth pain, mouth swelling, nasal discharge, nose bleeding, nose congestion, nose raghu n, photophobia, tearing, throat pain, throat swelling, voice changes, others Respiratory: denies: cough, hemoptysis, orthopnea, SOB at rest, shortness of breath, SOB with excertion, stridor, wheezing, others Cardiovascular: denies: chest pain, dizzy spells, diaphoresis, Dyspnea on exertion, edema, irregular heart beat, left arm pain, lightheadedness, palpitations, PND, syncope, others Gastrointestinal: reports: abdominal pain; denies: abdomen distended, blood streaked bowels, constipated, diarrhea, dysphagia, difficulty swallowing, hematemesis, melena, nausea, poor appetite, poor fluid intake, rectal bleeding, rectal pain, vomiting, others Genitourinary: reports: abnormal vagina bleeding, ; denies: burning, dyspareunia, dysuria, flank pain, frequency, hematuria, incontinence, pain, vagina discharge, urgency, others Neurological: denies: dizziness, fainting, headache, left sided numbness, left sided weakness, numbness, paresthesia, pre-existing deficit, right sided numbness, right sided weakness, seizure, speech problems, tingling, tremors, weakness, others Musculoskeletal: denies: back pain, gout, joint pain, joint swelling, muscle pain, muscle stiffness, neck pain, others Integumetry: denies: bruises, change in color, change in hair/nails, dryness, laceration, lesions, lumps, rash, wounds, others Allergic/Immunocompromised: denies: Difficulty Healing, Frequent Infections, Hives, Itching, others Hematologic/Lymphatic: denies: anemia, blood clots, easy bleeding, easy bruising, swollen glands, others Endocrine: denies: excessive hunger, excessive sweating, excessive thirst, excessive urination, flushing, intolerance to cold, intolerance to heat, unexplained weight gain, unexplained weight loss, others Psychiatric: denies: anxiety, bipolar disorder, depression, hopeless, panic disorder, schizophrenia, sleepless, suicidal, others All Other Systems: Reviewed and Negative Physical Exam General Appearance: Moderate Distress, Normal HEENT: Normal ENT Inspection, Pharynx Normal, TMs Normal Neck: Full Range of Motion, Non-Tender, Normal, Normal Inspection Respiratory: Chest Non-Tender, Lungs Clear, No Accessory Muscle Use, No Respiratory Distress, Normal Breath Sounds Cardiovascular: No Edema, No JVD, No Murmur, No Gallop, Normal Peripheral Pulses, Regular Rate/Rhythm Breast Exam: Deferred Gastrointestinal: No Organomegaly, Non Tender, No Pulsatile Mass, Normal Bowel Sounds, Soft Genitalia: Deferred Pelvic: Deferred Rectal: Deferred Extremities: No calf tenderness, Normal capillary refill, Normal inspection, Normal range of motion, Non-tender, No pedal edema Musculoskeletal : Apperance: Normal Neurologic: Alert, net lead architect II-XII nml as Tested, No Motor Deficits, Normal Affect, Normal Mood, No Sensory Deficits Cerebellar Function: Normal Reflexes: Normal Skin: Dry, Normal Color, Warm Peripheral Pulses: 3+ Radial (R), 3+ Radial (L) Lymphatic: No Adenopathy Was a procedure done? Was a procedure done?: No Differential Diagnosis ([employer]CELAIN FINISH SPRAYER) Vaginal Bleeding: - Complete, - Incomplete, - Inevitable, - Missed, - Threatened X-Ray, Labs, Meds, VS Vital Signs Date Time Temp Pulse Resp B/P (MAP) Pulse Ox O2 Delivery O2 Flow Rate FiO2 03/29/24 16:13 97 20 98 Room Air 03/29/24 16:13 97.8 97 20 135/85 (102) 98 97.8 03/29/24 14:15 98.5 80 18 123/60 (81) 99 Lab Test 03/29/24 14:17 Range/Units Beta HCG, Quantitative 28756.6 H 1.5-4.2 mIU/mL [place] [address] Ph: [phone] DIAGNOSTIC IMAGING Diagnostic Imaging Report : [id number] Signed PATIENT: BRIAN ANNEACCT: [id number] UNIT: [id number] : 2005 LOC: ER ROOM / BED: / AGE / SEX: 18 / F ADM STATUS: REG ER SERVICE [id number] ORDERING PHYSICIAN: JORDI SENA MD PROCEDURE(s): OB4US - OB ULTRASOUND COMP LESS 14WKS REASON: bleeding ORDER NUMBER(s): [id number], ACCESSION NUMBER(s): [id number] OB ULTRASOUND <14 WEEKS: HISTORY: bleeding TECHNIQUE: Multiple real-time grayscale sonographic images of the pelvis with duplex Doppler color flow, spectral and M-mode analysis. COMPARISON: US OB ULTRASOUND COMP LESS 14WKS on DOS: 03/21/24, US OB ULTRASOUND COMP LESS 14WKS on DOS: 03/17/24, US OB ULTRASOUND COMP LESS 14WKS on DOS: 03/16/24, US OB ULTRASOUND COMP LESS 14WKS on DOS: 03/16/24 FINDINGS: The uterus measures 9.7 x 10.4 x 6.0 cm The cervix closed Neither ovary is visualized. IUP single fetus at 12 weeks 2 days average ultrasound age based on mean crown- rump length of 5.6 cm and gestational sac size of 5.7 cm heart rate detected at 163 beats per minute. Yolk sac is present. Shanice-gestational space: Subchorionic hematoma measures 4.7 x 1.5 x 4.4 cm. IMPRESSION: 1. IUP single live fetus 12 weeks 2 days AUA corresponding to an VIRAJ of October 11, 2024. 2. Subchorionic hematoma measures up to 4.7 cm. Otherwise, no abnormal findings identified. ATED BY: LIZ NGUYEN MD DICTATED DATE/TIME: 03/29/246 SIGNED BY: LIZ NGUYEN MD SIGNED DATE/TIME: 03/29/24 1436 CC: Patient alert. Complaining of vaginal spotting. Vitals stable. Answering questions. Ultrasound reviewed does show . She has been here recently for the same symptom. She has not seen her primary care physician. OBGYN consulted. Explained to the patient. Was told to follow up with her OBGYN. Was told to come back if there is any problem. Time of 1ST Reevaluation: 14:34 Reevaluation 1ST: Unchanged Time of 2ND Reevaluation: 15:37 Reevaluation 2ND: Improved Patient Education/Counseling: Diagnosis, Treatment Family Education/Counseling: No Family Present Departure 1 Departure Time of Disposition: 15:39 Impression: Primary Impression: Normal Qualified Codes: Z34.90 - Encounter for supervision of normal , unspecified, unspecified trimester Additional Impression: Subchorionic hematoma Qualified Codes: O41.8X99 - Other specified disorders of amniotic fluid and membranes, unspecified trimester, other fetus; O46.8X9 - Other antepartum hemorrhage, unspecified trimester Disposition: 01 HOME / SELF CARE / HOMELESS Condition: Good Additional Instructions: [facility] [id number] [facility] [address] Ph: [phone] DIAGNOSTIC IMAGING Diagnostic Imaging Report : [id number] Signed PATIENT: BRIAN ANNE ACCT: [id number] UNIT: [id number] : 2005 LOC: ER ROOM / BED: / AGE / SEX: 18 / F ADM STATUS: REG ER SERVICE [id number] ORDERING PHYSICIAN: JORDI SENA MD PROCEDURE(s): OB4US - OB ULTRASOUND COMP LESS 14WKS REASON: bleeding ORDER NUMBER(s): [id number], ACCESSION NUMBER(s): [id number] OB ULTRASOUND <14 WEEKS: HISTORY: bleeding TECHNIQUE: Multiple real-time grayscale sonographic images of the pelvis with duplex Doppler color flow, spectral and M-mode analysis. COMPARISON: US OB ULTRASOUND COMP LESS 14WKS on DOS: 03/21/24, US OB ULTRASOUND COMP LESS 14WKS on DOS: 03/17/24, US OB ULTRASOUND COMP LESS 14WKS on DOS: 03/16/24, US OB ULTRASOUND COMP LESS 14WKS on DOS: 03/16/24 FINDINGS: The uterus measures 9.7 x 10.4 x 6.0 cm The cervix closed Neither ovary is visualized. IUP single fetus at 12 weeks 2 days average ultrasound age based on mean crown- rump length of 5.6 cm and gestational sac size of 5.7 cm heart rate detected at 163 beats per minute. Yolk sac is present. Shanice-gestational space: Subchorionic hematoma measures 4.7 x 1.5 x 4.4 cm. IMPRESSION: 1. IUP single live fetus 12 weeks 2 days AUA corresponding to an VIRAJ of October 11, 2024. 2. Subchorionic hematoma measures up to 4.7 cm. Otherwise, no abnormal findings identified. ATED BY: LIZ NGUYEN MD DICTATED DATE/TIME: 03/29/24 143 SIGNED BY: LIZ NGUYEN MD SIGNED DATE/TIME: 03/29/24 143 CC: Discharged With: Self Critical Care Note Critical Care Time?: No Stability Stability form required: No Heart Score Heart Score: Heart Score Response (Comments) Value History N/A 0 EKG N/A 0 Age N/A 0 Risk Factors N/A 0 Troponin N/A 0 Total 0 I personally scribed for JORDI SENA MD ([email or web address]) on 03/29/24 at 14:20. Electronically submitted by Jess Villa ([email or web address]). I personally scribed for JORDI SENA MD ([email or web address]) on 03/29/24 at 15:17. Electronically submitted by Jess Villa ([employer]). I personally scribed for JORDI SENA MD ([email or web address]) on 03/29/24 at 16:34. Electronically submitted by Jses Villa ([employer]). JORDI SENA MD Mar 29, 2024 14:20
--- NOTE | 2024-03-29 14:38 | DVH ---
OB ULTRASOUND <14 WEEKS: HISTORY: bleeding TECHNIQUE: Multiple real-time grayscale sonographic images of the pelvis with duplex Doppler color f low, spectral and M-mode analysis. COMPARISON: US OB ULTRASOUND COMP LESS 14WKS on DOS: 03/21/24, US OB ULTRASOUND COMP LESS 14WKS on DOS : 03/17/24, US OB ULTRASOUND COMP LESS 14WKS on DOS: 03/16/24, US OB ULTRASOUND COMP LESS 14WKS on DOS: 03/16/24 FINDINGS: The uterus measures 9.7 x 10.4 x 6.0 cm The cervix closed Neither ovary is visualized. IUP single fetus at 12 weeks 2 days average ultrasound age based on mean crown-rump length of 5.6 cm and gestational sac size of 5.7 cm heart rate detected at 163 beats per minute. Yolk sac is present. Shanice-gestational space: Subchorionic hematoma measures 4.7 x 1.5 x 4.4 cm. IMPRESSION: 1. IUP single live fetus 12 weeks 2 days AUA corresponding to an VIRAJ of October 11, 2024. 2. Subchorionic hematoma measures up to 4.7 cm. Otherwise, no abnormal findings identified.
[2024-03-29 16:13] VITALS: BP 135/85; PULSE 97; RESP 20; TEMP 97.8; O2SAT 98
== END 2024-03-29 16:32 | disposition home or self-care (01) ==
LOC: ER 14:00
DX: O20.8 Other hemorrhage in early pregnancy (principal); O26.891 Other specified pregnancy related conditions, first trimester; R10.2 Pelvic and perineal pain; Z3A.12 12 weeks gestation of pregnancy; Z87.440 Personal history of urinary (tract) infections; Z79.899 Other long term (current) drug therapy
CPT/HCPCS: 36415; 76801; 84702

== ENCOUNTER 2025-01-10 18:10 | Emergency (ER) | payer MEDICAID ==
[~2025-01-10] VITALS: Ht 170.2 cm; Wt 87.7 kg
[2025-01-10 18:12] VITALS: BP 138/77; PULSE 98; RESP 16; TEMP 98.3; O2SAT 98
--- NOTE | 2025-01-10 18:49 | ED.PDOC ---
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 Patient is a appr oximately 8 weeks . She started having vaginal bleeding yesterday, followed by cramping abdominal pain. Worsening of vaginal bleeding earlier, with passage of meaty material so prompted patient to go to the ER Chief Complaint: Vaginal Bleed Time Seen by MD: 18:48 Reviewed Notes: Nurses Notes Allergies: Coded Allergies: NO KNOWN ALLERGIES (Unverified , 03/17/24) Home Meds Active Scripts Ondansetron Odt 4MG Tab (ZOFRAN PO) 4 Mg Tb, 4 MG PO TID PRN for 4 Days, #12 TAB ODT TAB-DISSOLVE IN MOUTH, THEN SWALLOW Prov:MILO HANSEN MD 03/18/24 Nitrofurantoin Monohydrate Mac (Macrobid) 100 Mg Cap, 100 MG PO BID for 5 Days, #10 CAP Prov:POLLY BRAY MD 03/16/24 Information Source: Patient Mode of Arrival: Ambulatory Timing: Hours Severity: Moderate Bleeding Quality: Dark, Clotted Onset Of Mass/Bleeding: Spontaneous Sexual Activity: Associated Signs and Symptoms: Vaginal Bleeding, Abdominal Pain Past Medical History PAST MEDICAL HISTORY: UTI'S Surgical History: Denies all surgeries 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: 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 all MARKETING AMBASSADOR Hx 3 Para 1 Family History Family History: Reviewed,noncontributory to illness, Family hx of heart mai Social History Smoker: Quit Less Than 1 Year Alcohol: Denies ETOH Use Drugs: Denies Drug Use Lives In: Home Constitutional: denies: chills, diaphoresis, fatigue, fever, malaise, sweats, weakness, others EENTM: denies: blurred vision, double vision, ear bleeding, ear discharge, ear drainage, ear pain, ear ringing, eye pain, eye redness, hearing loss, mouth pain, mouth swelling, nasal discharge, nose bleeding, nose congestion, nose pain, photophobia, tearing, throat pain, throat swelling, voice changes, others Respiratory: denies: cough, hemoptysis, orthopnea, SOB at rest, shortness of breath, SOB with excertion, stridor, wheezing, others Cardiovascular: denies: chest pain, dizzy spells, diaphoresis, Dyspnea on exertion, edema, irregular heart beat, left arm pain, lightheadedness, palpitations, PND, syncope, others Gastrointestinal: reports: abdominal pain; denies: abdomen distended, blood streaked bowels, constipated, diarrhea, dysphagia, difficulty swallowing, hematemesis, melena, nausea, poor appetite, poor fluid intake, rectal bleeding, rectal pain, vomiting, others Genitourinary: reports: abnormal vagina bleeding; denies: burning, dyspareunia, dysuria, flank pain, frequency, hematuria, incontinence, pain, , vagina discharge, urgency, others Neurological: denies: dizziness, fainting, headache, left sided numbness, left sided weakness, numbness, paresthesia, pre-existing deficit, right sided numbness, right sided weakness, seizure, speech problems, tingling, tremors, weakness, others Musculoskeletal: denies: back pain, gout, joint pain, joint swelling, muscle pain, muscle stiffness, neck pain, others Integumetry: denies: bruises, change in color, change in hair/nails, dryness, laceration, lesions, lumps, rash, wounds, others Allergic/Immunocompromised: denies: Difficulty Healing, Frequent Infections, Hives, Itching, others Hematologic/Lymphatic: denies: anemia, blood clots, easy bleeding, easy bruising, swollen glands, others Endocrine: denies: excessive hunger, excessive sweating, excessive thirst, excessive urination, flushing, intolerance to cold, intolerance to heat, unexplained weight gain, unexplained weight loss, others Psychiatric: denies: anxiety, bipolar disorder, depression, hopeless, panic disorder, schizophrenia, sleepless, suicidal, others Physical Exam General Appearance: No Apparent Distress, Normal HEENT: Normal ENT Inspection, Pharynx Normal, TMs Normal Neck: Full Range of Motion, Non-Tender, Normal, Normal Inspection Respiratory: Chest Non-Tender, Lungs Clear, No Accessory Muscle Use, No Respiratory Distress, Normal Breath Sounds Cardiovascular: No Edema, No JVD, No Murmur, No Gallop, Normal Peripheral Pulses, Regular Rate/Rhythm Breast Exam: Deferred Gastrointestinal: No Organomegaly, Non Tender, No Pulsatile Mass, Normal Bowel Sounds, Soft Genitalia: Deferred Pelvic: Deferred Rectal: Deferred Extremities: No calf tenderness, Normal capillary refill, Normal inspection, Normal range of motion, Non-tender, No pedal edema Musculoskeletal : Apperance: Normal Neurologic: Alert, transport pilot II-XII nml as Tested, No Motor Deficits, Normal Affect, Normal Mood, No Sensory Deficits Cerebellar Function: Normal Reflexes: Normal Skin: Dry, Normal Color, Warm Lymphatic: No Adenopathy Was a procedure done? Was a procedure done?: No Differential Diagnosis (MARKETING AMBASSADOR) Vaginal Bleeding: - Inevitable, - Missed, - Threatened, Blood Loss Anemia, UTI X-Ray, Labs, Meds, VS Vital Signs Date Time Temp Pulse Resp B/P (MAP) Pulse Ox O2 Delivery O2 Flow Rate FiO2 01/10/25 18:12 98.3 98 16 138/77 98 98.3 Lab Test 01/10/25 18:48 01/10/25 18:21 Range/Units White Blood Count 10.3 4.4-10.8 10^3/uL Red Blood Count 5.28 H 4.0-5.20 10^6/uL Hemoglobin 13.5 12.2-16.2 g/dL Hematocrit 40.2 36.0-46.0 % Mean Corpuscular Volume 76.0 L 80.0-100.0 fL Mean Corpuscular Hemoglobin 25.7 L 28.0-32.0 pg Mean Corpuscular Hemoglobin Concent 33.7 32.0-36.0 g/dL Red Cell Distribution Width 14.3 11.8-14.3 % Platelet Count 319 140-450 10^3/uL Mean Platelet Volume 7.4 6.9-10.8 fL Neutrophils (%) (Auto) 66.2 37.0-80.0 % Lymphocytes (%) (Auto) 24.7 10.0-50.0 % Monocytes (%) (Auto) 8.7 0.0-12.0 % Eosinophils (%) (Auto) 0.3 0.0-7.0 % Basophils (%) (Auto) 0.1 0.0-2.0 % Neutrophils # (Auto) 6.8 1.6-8.6 10 ^3/uL Lymphocytes # (Auto) 2.6 0.4-5.4 10 ^3/uL Monocytes # (Auto) 0.9 0-1.3 10 ^3/uL Eosinophils # (Auto) 0 0-0.8 10 ^3/uL Basophils # (Auto) 0 0-0.2 10 ^3/uL Nucleated Red Blood Cells 0.0 % Sodium Level 141 136-145 mmol/L Potassium Level 3.4 L 3.5-5.1 mmol/L Chloride Level 108 H 98-107 mmol/L Carbon Dioxide Level 21 20-31 mmol/L Anion Gap 12 5-15 Blood Urea Nitrogen 11 9-23 mg/dL Creatinine 0.71 0.550-1.02 mg/dL Glomerular Filtration Rate Calc 124 >90 mL/min BUN/Creatinine Ratio 15.5 10.0-20.0 Serum Glucose 97 74-106 mg/dL Calcium Level 9.0 8.7-10.4 mg/dL Total Bilirubin 1.0 0.2-1.0 mg/dL Aspartate Amino Transferase (AST) 43 H 13-40 U/L Alanine Aminotransferase (ALT) 96 H 7-40 U/L Alkaline Phosphatase 202 H 46-116 U/L Total Protein 7.1 5.7-8.2 g/dL Albumin 4.1 3.2-4.8 g/dL Beta HCG, Quantitative 299985.0 H 1.5-4.2 mIU/mL Urine Color Yellow Yellow Urine Clarity Clear Clear Urine pH 5.5 5.0-9.0 Urine Specific [place] 1.032 1.001-1.035 Urine Protein Trace H Negative Urine Ketones Trace Negative Urine Blood Trace H Negative /uL Urine Nitrite Negative Negative Urine Bilirubin Negative Negative Urine Urobilinogen Normal Negative mg/dL Urine Leukocyte Esterase Negative Negative /uL Urine RBC 2 0 - 4 /hpf Urine Microscopic WBC 1 0-5 /HPF Urine Squamous Epithelial Cells Few <5 /hpf Urine Amorphous Crystals Few None Seen /hpf Urine Bacteria None seen None Seen /hpf Urine Mucus Few None Seen Urine Glucose Normal Normal mg/dL Time of 1ST Reevaluation: 18:44 Reevaluation 1ST: Unchanged Patient Education/Counseling: Diagnosis, Treatment Family Education/Counseling: No Family Present Departure 1 Departure Time of Disposition: 20:30 Impression: Primary Impression: Vaginal bleeding affecting early Disposition: 01 HOME / SELF CARE / HOMELESS Condition: Stable Discharged With: Self Critical Care Note Critical Care Time?: No Stability Stability form required: No Heart Score Heart Score: Heart Score Response (Comments) Value History N/A 0 EKG N/A 0 Age N/A 0 Risk Factors N/A 0 Troponin N/A 0 Total 0 I personally scribed for SWAPNA GRAVES MD ([email or web address]) on 01/10/25 at 18:49. Electronically submitted by Jason Mota ([email or web address]). SWAPNA GRAVES MD Jan 10, 2025 18:49
[2025-01-10 19:04] LABS: Urine Amorphous Crystal FEW /hpf (None Seen); Urine Protein, UAD TRACE (Negative)
[2025-01-10 19:10] LABS: Hemoglobin 13.5 g/dL (12.2-16.2); Mean Corpuscular Volume 76.0 fL (80.0-100.0); Nucleated Red Blood Cells % 0.0 %
[2025-01-10 19:11] LABS: Hematocrit 40.2 % (36.0-46.0); Mean Corpuscular Hemoglobin 25.7 pg (28.0-32.0)
[2025-01-10 19:25] LABS: Albumin 4.1 g/dL (3.2-4.8); Anion Gap 12 (5-15); BUN/Creatinine Ratio 15.5 (10.0-20.0); Blood Urea Nitrogen 11 mg/dL (9-23); Calcium 9.0 mg/dL (8.7-10.4); Carbon Dioxide 21 mmol/L (20-31); Glucose 97 mg/dL (74-106); Sodium 141 mmol/L (136-145); Total Protein 7.1 g/dL (5.7-8.2)
[2025-01-10 19:26] LABS: Bilirubin, Total 1.0 mg/dL (0.2-1.0)
[2025-01-10 19:30] LABS: Alanine Aminotransferase 96 U/L (7-40); Alkaline Phosphatase 202 U/L (46-116); Chloride 108 mmol/L (98-107); Potassium 3.4 mmol/L (3.5-5.1)
--- NOTE | 2025-01-10 21:01 | DVH ---
FIRST TRIME[facility] OBSTETRICAL ULTRASOUND HISTORY: vag bleed, 8 wks . LMP 11/11/2024. VIRAJ by LMP 08/18/2025. Gestational age by LMP 8 weeks 4 days. COMPARISON: US OB ULTRASOUND COMP LESS 14WKS on DOS: 03/29/24, US OB ULTRASOUND COMP LESS 14WKS on DO S: 03/21/24, US OB ULTRASOUND COMP LESS 14WKS on DOS: 03/17/24, US OB ULTRASOUND COMP LESS 14WKS on DOS : 03/16/24, US OB ULTRASOUND COMP LESS 14WKS on DOS: 03/16/24 TECHNIQUE: Transabdominal and endovaginal imaging of the pelvis. FINDINGS: UTERUS: The uterus is anteverted and measures 8.8 x 5.2 x 6.5 cm. There is a heterogeneously thickene d endometrial stripe measuring 30 mm. There is trace irregular fluid within the endometrial stripe ne ar the fundus. No definite gestational sac is identified. CERVIX: Long and closed. ADNEXA: The right ovary measures 3.9 x 2.3 x 2.8 cm. There is a 1.9 x 1.5 x 1.4 cm thick-walled cysti c structure in the right ovary without significant vascularity likely representing a corpus luteum cy st. The left ovary measures 2.3 x 2.1 x 1.5 cm. Both ovaries demonstrate expected color and spectral Doppler flow. OTHER: No free fluid is identified in the cul-de-sac. IMPRESSION: No definite intrauterine gestational sac is identified. There is a thick-walled cystic structure within the right ovary with the appearance of a corpus luteu m cyst. Clinical correlation with serial beta HCG and repeat ultrasound in 7-10 days is recommended t o rule out ectopic gestation.
== END 2025-01-10 23:42 | disposition home or self-care (01) ==
LOC: ER 18:10
DX: O20.9 Hemorrhage in early pregnancy, unspecified (principal); R10.2 Pelvic and perineal pain; Z87.440 Personal history of urinary (tract) infections; Z87.891 Personal history of nicotine dependence; Z79.899 Other long term (current) drug therapy; Z3A.08 8 weeks gestation of pregnancy
CPT/HCPCS: 36415; 76801; 76817; 80053; 81001; 84702; 85025; 86901

== ENCOUNTER 2025-02-16 18:45 | Emergency (ER) | payer MEDICAID ==
[~2025-02-16] VITALS: Ht 170.2 cm; Wt 84.0 kg
[2025-02-16] MEDS: SODIUM CHLORIDE 0.9% 1,000 ML IV ONE ×2 (19:45→21:40)
--- NOTE | 2025-02-16 20:06 | ED.PDOC ---
RECEPTIONIST SCHEDULER HPI Comments 19 y/o F presents with c/c of vaginal bleeding, with associated lower abdominal pain, weakness, and lightheadedness. Patient endorses on having worsening symptoms since initial onset on 01/15/25. Symptoms were unprovoked and atraumatic. She reports on needing to go through 10 pads/hour, due to to excessive bleeding. Patient also mentions on being a month ago but, now, is not anymore. Patient is 4 miscarriages. No further acute symptoms are reported. Later in the course at a proximally 0049 hour, patient was able to disclose to us more information. She said that she found out she is in November of this year and had a miscarriage it the end of December and had an ER visit at that time but she eloped and did not get any of her discharge instructions. Patient has not been sexually active since then. Patient has been having some minimal vaginal spotting for the last two weeks and started having heavy bleeding in the last day and a half. HPI: Poor Historian. Past Medical History: Genital herpes Past Surgical History: Denies REVIEW OF SYSTEMS: CONSTITUTIONAL: Denies acute: fever, diaphoresis, chills, HEAD: Denies acute: headache, photophobia Eyes: Denies acute: Double vision, vision loss, eye pain, eye discharge. EARS: Denies acute: tinnitus, hearing loss, ear discharge, ear pain, THROAT: Denies acute: sore throat, swelling, difficulty swallowing , pain with swallowing, change in voice. NECK: Denies acute: neck pain, neck swelling, stiff neck. HEART: Denies acute : chest pain, palpitations, LUNGS: Denies acute: SOB, wheezing, cough, hemoptysis ABDOMEN: Denies acute: Nausea, Vomiting, diarrhea, melena , hematemesis, hematochezia SKIN: Denies acute: rash, redness, lesions, itchiness. EXTREMITIES: Denies acute: calf pain, numbness, tingling, weakness, denies pain in extremity. Denies acute: Low back pain. Neuro: Denies acute: focal neurological deficit, motor or sensory focal neurological deficit, tremors, seizure like activity, confusion, change in mental status, loss of bowel or bladder function, cauda equina like symptoms. : Denies acute: dysuria, hematuria, flank pain, increase in urinary frequency. PSYCH: Denies acute: hallucination, suicidal ideation, homicidal ideation. FEMALE: Denies acute: foul odor, unusual discharge. PHYSICAL EXAM: General: ---moderate----acute distress, awake and alert. Head: normocephalic, atraumatic. Neck: supple, trachea is midline, no swelling. Throat: Normal phonation. Eyes:, no erythema, no purulent discharge, no proptosis, no icterus. Heart: regular tachycardic, no significant murmur appreciated. Lungs: no apparent respiratory distress, Able to speak in full sentences. No wheezing, no rhonchi, no crackles. No stridors Clear to auscultation bilaterally. Abdomen: Suprapubic tender to palpation, non distended, soft, no guarding, no rebound, + bowel sounds. Neuro: Awake, Alert, oriented to name, self, situation, follows commands GCS=15. Speech is normal. Skin: no petechia, no purpura, no cyanosis, non-pale, not jaundice. Lower extremities: --no - Pitting edema no deformity, no focal swelling, no calf TTP. Makes eye contact. moves all four extremities. Face: no apparent facial droop. ED COURSE: Patient has said that her blood pressure has been running low in general since she quit smoking two months ago. It runs in the low 100s. However she states that she is asymptomatic. DISCLAIMER: This medical document was created using an electronic medical record system with voice recognition software and computerized dictation system. Although this document has been carefully reviewed, there might still be some phonetic and ty pographical errors. Occasional wrong-word or "sound-alike" substitutions may have occurred due to the inherent limitations of voice recognition software. These areas are purely typographical due to imperfections of the software programs and do not reflect any compromise in the patient's medical care. Please read the chart carefully and recognize, using context, where these substitutions have occurred. Chief Complaint: Vaginal Bleed Time Seen by MD: 19:50 Reviewed Notes: Nurses Notes, Medications, Allergies Allergies: Coded Allergies: NO KNOWN ALLERGIES (Unverified , 03/17/24) Home Meds Active Scripts Ondansetron Odt 4MG Tab (ZOFRAN PO) 4 Mg Tb, 4 MG PO TID PRN for 4 Days, #12 TAB ODT TAB-DISSOLVE IN MOUTH, THEN SWALLOW Prov:MILO HANSEN MD 03/18/24 Nitrofurantoin Monohydrate Mac (Macrobid) 100 Mg Cap, 100 MG PO BID for 5 Days, #10 CAP Prov:POLLY BRAY MD 03/16/24 Information Source: Patient Mode of Arrival: Ambulatory Past Medical History PAST MEDICAL HISTORY: UTI'S Surgical History: Denies all surgeries SOLAR PROCESS ENGINEER 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 Was a procedure done?: No Differential Diagnosis (SOLAR PROCESS ENGINEER) Vaginal Bleeding: - Complete, - Incomplete, - Inevitable, - Missed, - Threatened, Abruptio Placentae, Blood Loss Anemia, Cervicitis, Dysmenorrhea, Ectopic , Hormonal, Menorrhagia, Menometrorrhagia, Menstrual Bleeding, Myomatous Uterus, PID, Placenta Previa, Precipitous Hct, Trauma, UTI, Other (Differential diagnosis includes but not limited to DU B, menorrhea, metromenorrhagia, neoplasm, coagulopathy,, trauma, miscarriage, placenta previa, placental abruption, ) X-Ray, Labs, Meds, VS Vital Signs Date Time Temp Pulse Resp B/P (MAP) Pulse Ox O2 Delivery O2 Flow Rate FiO2 02/17/25 03:10 64 18 105/57 (73) 100 02/17/25 02:37 97/51 (66) 100 02/17/25 01:36 78 16 101/55 (70) 99 02/17/25 01:35 89 101/51 67 99/55 70 109/46 02/16/25 23:00 88 18 105/62 (76) 99 02/16/25 21:07 90 16 98 Room Air* 0 21 02/16/25 21:00 98.4 89 20 102/59 (73) 99 98.4 02/16/25 19:45 97.7 94 14 118/68 (85) 98 97.7 02/16/25 19:05 98.1 102 18 139/94 98 98.1 Lab Test 02/17/25 02:08 02/16/25 23:26 02/16/25 20:14 Range/Units Hemoglobin 9.3 L 9.7 #L 12.5 12.2-16.2 g/dL Hematocrit 27.9 L 29.8 #L 36.7 36.0-46.0 % White Blood Count 11.8 H 4.4-10.8 10^3/uL Red Blood Count 4.85 4.0-5.20 10^6/uL Mean Corpuscular Volume 75.7 L 80.0-100.0 fL Mean Corpuscular Hemoglobin 25.8 L 28.0-32.0 pg Mean Corpuscular Hemoglobin Concent 34.0 32.0-36.0 g/dL Red Cell Distribution Width 13.8 11.8-14.3 % Platelet Count 328 140-450 10^3/uL Mean Platelet Volume 7.6 6.9-10.8 fL Neutrophils (%) (Auto) 59.5 37.0-80.0 % Lymphocytes (%) (Auto) 31.1 10.0-50.0 % Monocytes (%) (Auto) 8.1 0.0-12.0 % Eosinophils (%) (Auto) 1.0 0.0-7.0 % Basophils (%) (Auto) 0.3 0.0-2.0 % Neutrophils # (Auto) 7.0 1.6-8.6 10 ^3/uL Lymphocytes # (Auto) 3.7 0.4-5.4 10 ^3/uL Monocytes # (Auto) 1.0 0-1.3 10 ^3/uL Eosinophils # (Auto) 0.1 0-0.8 10 ^3/uL Basophils # (Auto) 0 0-0.2 10 ^3/uL Nucleated Red Blood Cells 0.0 % Prothrombin Time 10.8 9.3-11.8 sec Prothrombin Time INR 1.02 0.9-1.15 Activated Partial Thromboplast Time 28.3 24.5-34.5 SEC Sodium Level 144 136-145 mmol/L Potassium Level 3.9 3.5-5.1 mmol/L Chloride Level 108 H 98-107 mmol/L Carbon Dioxide Level 25 20-31 mmol/L Anion Gap 11 5-15 Blood Urea Nitrogen 9 9-23 mg/dL Creatinine 0.98 0.550-1.02 mg/dL Glomerular Filtration Rate Calc 84 >90 mL/min BUN/Creatinine Ratio 9.2 L 10.0-20.0 Serum Glucose 84 74-106 mg/dL Calcium Level 8.8 8.7-10.4 mg/dL Total Bilirubin 0.6 0.2-1.0 mg/dL Aspartate Amino Transferase (AST) 19 13-40 U/L Alanine Aminotransferase (ALT) 15 7-40 U/L Alkaline Phosphatase 104 46-116 U/L Total Protein 7.0 5.7-8.2 g/dL Albumin 4.2 3.2-4.8 g/dL Beta HCG, Quantitative 198.0 H 1.5-4.2 mIU/mL Current Medications Medications (Trade) Dose Ordered Sig/Justin Route Start Time Stop Time Status Last Admin Sodium Chloride 1,000 ml @ 1,000 mls/hr Q1H ONCE IV 02/16/25 19:45 02/16/25 20:44 DC 02/16/25 19:45 Sodium Chloride 1,000 ml @ 1,000 mls/hr Q1H ONCE IV 02/16/25 19:45 02/16/25 20:44 DC 02/16/25 21:40 Tranexamic Acid 1000 mg/Sodium Chloride 110 ml @ 300 mls/hr ONCE ONCE IV 02/16/25 20:30 02/16/25 20:51 DC 02/16/25 20:30 [place] [address] Ph: [phone] DIAGNOSTIC IMAGING Diagnostic Imaging Report : [id number] Signed PATIENT: BRIAN ANNE ACCT: [id number] UNIT: [id number] : 2005 LOC: ER ROOM / BED: / AGE / SEX: 19 / F ADM STATUS: REG ER SERVICE 41 ORDERING PHYSICIAN: KALYANI OLSEN DO PROCEDURE(s): OB4US - OB ULTRASOUND COMP LESS 14WKS REASON: vag bleed ORDER NUMBER(s): [id number], ACCESSION NUMBER(s): [id number] INDICATION: vag bleed TECHNIQUE: Multiple real-time grayscale transabdominal sonographic images along with color and duplex Doppler of the uterus and ovaries were obtained. COMPARISON: 01/10/2025 FINDINGS: The uterus measures 9.4 x 4.9 x 5.3 cm. The endometrial stripe measures 21 mm. Nabothian cysts are present. No intrauterine gestational sac or cavitary fluid. Right ovary measures 2 x 1.5 x 2.1 cm with normal Doppler color flow. Left ovary measures 2.1 x 1.3 x 2.4 cm with normal Doppler color flow. No visualized ascites. IMPRESSION: Thickened endometrium without intrauterine gestational sac or cavitary fluid. In the setting of positive quantitative hCG the exam is consistent with of unknown location, a designation which includes normal early and does not exclude ectopic . Follow-up with trending of quantitative hCG values is recommended. An ultrasound may be considered in at least 2 weeks for definitive characterization of viability, or sooner if clinically necessary. ATED BY: EDNA CONTI MD DICTATED DATE/TIME: 02/16/252318 SIGNED BY: EDNA CONTI MD SIGNED DATE/TIME: 02/16/252318 CC: Time of 1ST Reevaluation: 20:20 Reevaluation 1ST: Unchanged Time of 2ND Reevaluation: 00:50 (Patient states she has not bleeding anymore.) Reevaluation 2ND: Improved Time of 3RD Reevaluation: 02:46 (Patient ambulating independently in the ED. Patient is asymptomatic. Patient wants to be discharged home. Repeat serial H and H remained stable.) Patient Education/Counseling: Diagnosis, Treatment Family Education/Counseling: No Family Present Comments MDM: patient presented with the above HPI.--vaginal bleed----workup was initiated. patient was found with the above mentioned diagnosis. the following medications were ordered: please refer to order lists of meds and tests obtained by myself Dr. Olsen. Patient ED course and VS have been stabilized. Patient has been reassessed in the ED and remained in a stable condition. Pertinent incidental findings were discussed with the patient and/or family. Patient/family voices understanding and is agreeable with plan. Patient has been observed in the ED adequate length of time to insure improvement/stability. Escalation of care considered: Consideration of escalation to observation or admission Serial H&H was obtained which remained stable. Patient bleeding has stopped. Patient was ambulated that she did well and was asymptomatic. She says that her blood pressure runs low. Patient was DISCHARGED home in a stable condition. All the reports of any imaging studies that were ordered by myself were reviewed by myself. Departure 1 Departure Time of Disposition: 02:45 Impression: Primary Impression: Dysfunctional uterine bleeding Additional Impressions: Anemia Abnormal ultrasound Disposition: HOME / SELF CARE / HOMELESS Condition: Stable Additional Instructions: Additional instructions: Please read all instructions provided in this packet carefully. You MUST follow-up with your primary care/family doctor in 1 to 2 days. If you are unable to see your primary care/family doctor, please return to our emergency room for re-assessment and re-evaluation in 1 to 2 days. Return to the emergency room here in our facility or to the nearest ER [facility] if your symptoms change or worsen. CONSULTATIONS: you MUST Follow-up for consultation as soon as possible with: Dr. NAVEEN Tello doctor in 1-2 days. Please call for appointment You MUST call the consultants office yourself to make an appointment. You may need to arrange that through your insurance and/or your primary/family doctor. If you are unable to see the specialty development consultant in 1 to 2 days, you must return to our emergency room (or any other ER of your choice) for re-assessment and re- evaluation. Adequate fluid hydration. Although you have been discharged from the Emergency Department, this does not mean that you have a "clean bill of health". No definitive diagnosis for your symptoms has been made today. It is possible that you are in the process of developing a serious illness. This is why you must return to the ED without fail if any new or worsening symptoms develop. Pelvic rest. Repeat CBC level in 48-72 hours. Take iron supplements daily. Repeat beta-hCG levels in 48-72 hours. Repeat pelvic ultrasound in 4-5 days. Below is a copy of your radiological report for follow up: [address] [address] Ph: [phone] DIAGNOSTIC IMAGING Diagnostic Imaging Report : [id number] Signed PATIENT: BRIAN ANNE ACCT: [id number] UNIT: [id number] : 2005 LOC: ER ROOM / BED: / AGE / SEX: 19 / F ADM STATUS: REG ER SERVICE 41 ORDERING PHYSICIAN: KALYANI OLSEN DO PROCEDURE(s): OB4US - OB ULTRASOUND COMP LESS 14WKS REASON: vag bleed ORDER NUMBER(s): [id number], ACCESSION NUMBER(s): [id number] INDICATION: vag bleed TECHNIQUE: Multiple real-time grayscale transabdominal sonographic images along with color and duplex Doppler of the uterus and ovaries were obtained. COMPARISON: 01/10/2025 FINDINGS: The uterus measures 9.4 x 4.9 x 5.3 cm. The endometrial stripe measures 21 mm. Nabothian cysts are present. No intrauterine gestational sac or cavitary fluid. Right ovary measures 2 x 1.5 x 2.1 cm with normal Doppler color flow. Left ovary measures 2.1 x 1.3 x 2.4 cm with normal Doppler color flow. No visualized ascites. IMPRESSION: Thickened endometrium without intrauterine gestational sac or cavitary fluid. In the setting of positive quantitative hCG the exam is consistent with of unknown location, a designation which includes normal early and does not exclude ectopic . Follow-up with trending of quantitative hCG values is recommended. An ultrasound may be considered in at least 2 weeks for definitive characterization of viability, or sooner if clinically necessary. ATED BY: EDNA CONTI MD DICTATED DATE/TIME: 02/16/252318 SIGNED BY: EDNA CONTI MD SIGNED DATE/TIME: 02/16/252318 CC: Discharged With: Self Critical Care Note Critical Care Time?: Yes (1 hr-critical care time only) Stability Stability form required: No Heart Score Heart Score: Heart Score Response (Comments) Value History N/A 0 EKG N/A 0 Age N/A 0 Risk Factors N/A 0 Troponin N/A 0 Total 0 I personally scribed for KALYANI OLSEN DO ([email or web address]) on 02/16/25 at 20:06. Electronically submitted by Alberto Sears ([email or web address]). I personally scribed for KALYANI OLSEN DO ([email or web address]) on 02/16/25 at 20:51. Electronically submitted by Alberto Sears ([email or web address]). I personally scribed for KALYANI OLSEN DO ([email or web address]) on 02/16/25 at 20:58. Electronically submitted by Alberto Sears ([email or web address]). I personally scribed for KALYANI OLSEN DO ([email or web address]) on 02/16/25 at 20:59. Electronically submitted by Alberto Sears ([email or web address]). I personally scribed for KALYANI OLSEN DO ([email or web address]) on 02/16/25 at 22:46. Electronically submitted by Alberto Sears ([email or web address]). I personally scribed for KALYANI OLSEN DO ([email or web address]) on 02/17/25 at 01:50. Electronically submitted by Alberto Sears ([email or web address]). I personally scribed for KALYANI OLSEN DO ([email or web address]) on 02/17/25 at 04:50. Electronically submitted by Alberto Sears ([email or web address]). KALYANI OLSEN DO Feb 16, 2025 20:06
[2025-02-16] MEDS: TRANEXAMIC ACID 1,000 MG in SODIUM CHL 0.9% 100 ML IV ONE (20:30)
[2025-02-16 20:45] LABS: Nucleated Red Blood Cells % 0.0 %
[2025-02-16 20:47] LABS: Hematocrit 36.7 % (36.0-46.0); Hemoglobin 12.5 g/dL (12.2-16.2); Mean Corpuscular Hemoglobin 25.8 pg (28.0-32.0); Mean Corpuscular Volume 75.7 fL (80.0-100.0)
[2025-02-16 20:55] LABS: Alanine Aminotransferase 15 U/L (7-40); Albumin 4.2 g/dL (3.2-4.8); Alkaline Phosphatase 104 U/L (46-116); Anion Gap 11 (5-15); BUN/Creatinine Ratio 9.2 (10.0-20.0); Calcium 8.8 mg/dL (8.7-10.4); Carbon Dioxide 25 mmol/L (20-31); Glucose 84 mg/dL (74-106); Potassium 3.9 mmol/L (3.5-5.1); Sodium 144 mmol/L (136-145); Total Protein 7.0 g/dL (5.7-8.2)
[2025-02-16 20:56] LABS: Bilirubin, Total 0.6 mg/dL (0.2-1.0)
[2025-02-16 21:00] VITALS: TEMP 98.4
[2025-02-16 21:04] LABS: INR 1.02 (0.9-1.15); Partial Thromboplastin Time 28.3 SEC (24.5-34.5); Prothrombin Time 10.8 sec (9.3-11.8)
[2025-02-16] MEDS: TRANEXAMIC ACID 10 ML ONE (21:06)
[2025-02-16 21:07] VITALS: PULSE 90; RESP 16; O2SAT 98
[2025-02-16 21:13] LABS: Blood Urea Nitrogen 9 mg/dL (9-23); Chloride 108 mmol/L (98-107)
--- NOTE | 2025-02-16 23:21 | DVH ---
INDICATION: vag bleed TECHNIQUE: Multiple real-time grayscale transabdominal sonographic images along with color and duplex Doppler of the uterus and ovaries were obtained. COMPARISON: 01/10/2025 FINDINGS: The uterus measures 9.4 x 4.9 x 5.3 cm. The endometrial stripe measures 21 mm. Nabothian cysts are pr esent. No intrauterine gestational sac or cavitary fluid. Right ovary measures 2 x 1.5 x 2.1 cm with normal Doppler color flow. Left ovary measures 2.1 x 1.3 x 2.4 cm with normal Doppler color flow. No visualized ascites. IMPRESSION: Thickened endometrium without intrauterine gestational sac or cavitary fluid. In the setting of posit leonardo quantitative hCG the exam is consistent with of unknown location, a designation which i ncludes normal early and does not exclude ectopic . Follow-up with trending of deric ntitative hCG values is recommended. An ultrasound may be considered in at least 2 weeks for definit leonardo characterization of viability, or sooner if clinically necessary.
[2025-02-16 23:54] LABS: Hematocrit 29.8 % (36.0-46.0); Hemoglobin 9.7 g/dL (12.2-16.2)
[2025-02-17 02:31] LABS: Hemoglobin 9.3 g/dL (12.2-16.2)
[2025-02-17 02:32] LABS: Hematocrit 27.9 % (36.0-46.0)
[2025-02-17 03:10] VITALS: BP 105/57; PULSE 64; RESP 18; O2SAT 100
== END 2025-02-17 03:30 | disposition home or self-care (01) ==
LOC: ER 18:47
DX: N93.8 Other specified abnormal uterine and vaginal bleeding (principal); D64.9 Anemia, unspecified; R93.89 Abnormal findings on diagnostic imaging of other specified body structures; Z87.440 Personal history of urinary (tract) infections; Z87.891 Personal history of nicotine dependence; Z79.899 Other long term (current) drug therapy
CPT/HCPCS: 36415; 76801; 76817; 80053; 84702; 85014; 85018; 85025; 85610; 85730; 86850; 86900; 86901; 96361; 96365; 96366; 99285; J7030